=== PATIENT | male | born 1970 | race Caucasian/White ===

== ENCOUNTER 2018-06-22 05:57 | Emergency (ER) | payer BC ==
--- NOTE | 2018-06-22 06:08 | Emergency Department Record ---
History of Present Illness - General Chief complaint: Lower Extremity Pain Stated complaint: KNEE INJURY Time Seen by Provider: 06/22/18 05:58 Source: Patient Mode of Arrival: Ambulatory Limitations: No limitations - History of Present Illness Initial comments: 47 yo male presents with a right knee injury that occurred about 5pm. He was pressing against something and felt a pop in the lateral right knee. The pain has gradually increased since then. No history of prior right knee surgery or disease. MD Complaint: Joint pain, Joint swelling -: Hour(s) (13) Location: Right, Knee History of Same: Yes -: Yes Arthralgia Radiation: Distal Quality: Aching Consistency: Constant Improves with: Nothing Worsens with: Palpation, Walking, Weight bearing Associated Symptoms: Denies other symptoms - Related Data Home Medications Medication Instructions Recorded Confirmed Last Taken No Home Med [NO HOME MEDS] 06/22/18 06/22/18 Unknown Allergies Allergy/AdvReac Type Severity Reaction Status Date / Time amoxicillin AdvReac DIARRHEA Verified 06/22/18 06:04 Review of Systems Constitutional: Denies: Chills, Fever, Malaise, Weakness Eyes: Denies: Eye discharge ENT: Denies: Congestion, Throat pain Respiratory: Denies: Cough Cardiovascular: Denies: Chest pain, Palpitations, Syncope Endocrine: Denies: Fatigue Gastrointestinal: Denies: Abdominal pain, Diarrhea, Nausea, Vomiting Genitourinary: Denies: Dysuria, Frequency, Hematuria Musculoskeletal: Reports: As per HPI, Arthralgia Skin: Denies: Bruising, Change in color, Rash Neurological: Denies: Headache Psychiatric: Denies: Anxiety Hematological/Lymphatic: Denies: Easy bleeding, Easy bruising Past Medical History - SOCIAL HISTORY Smoking Status: Former smoker - RESPIRATORY Hx Respiratory Disorders: No - CARDIOVASCULAR Hx Cardio Disorders: No - NEURO Hx Neuro Disorders: No - GI Hx GI Disorders: No - Hx Genitourinary Disorders: No - ENDOCRINE Hx Endocrine Disorders: No - MUSCULOSKELETAL Hx Musculoskeletal Disorders: No - PSYCH Hx Psych Problems: No - HEMATOLOGY/ONCOLOGY Hx Hematology/Oncology Disorders: No Family Medical History Hx Dementia: Grandparents Hx Diabetes: Mother Hx HTN: Father, Mother Hx Stroke: Grandparents Physical Exam - General General Appearance: Alert, Oriented x3, Cooperative, No acute distress Limitations: No limitations - Head Head exam: Atraumatic, Normal inspection - Eye Eye exam: Normal appearance - ENT ENT exam: Normal exam Ear exam: Normal external inspection Nasal Exam: Normal inspection Mouth exam: Normal external inspection - Neck Neck exam: Normal inspection - Extremities Extremities exam: Normal inspection, Joint swelling, Tenderness. negative: Calf tenderness Image of Full Body: 1 - lateral right knee tenderness with palpation, mild effusion likely, patella is midline, no medial tenderness - Back Back exam: Reports: Full ROM - Neurological Neurological exam: Alert, Oriented X3 - Psychiatric Psychiatric exam: Normal affect, Normal mood - Skin Skin exam: Dry, Intact, Normal color, Warm Course - Reevaluation(s) Reevaluation #1: 06/22/18 06:35 The XR was reviewed Narrowed medial joint, small effusion, no fracture or dislocation He will be treated supportively with crutches and knee immobilizer He has seen Dr Kirkpatrick in the past and he will be referred to the [facility] ortho clinic Disposition Disposition: Discharge Clinical Impression: Right knee sprain Qualifiers: Encounter type: initial encounter Involved ligament of knee: unspecified ligament Qualified Code(s): S83.91XA - Sprain of unspecified site of right knee , initial encounter Disposition: Home, Self-Care Condition: (1) Good Instructions: Knee Sprain (ED) Additional Instructions: Ice and elevate the knee to minimize swelling Use the crutches for support and to take weight off the knee as it heals Forms: Patient Portal Access Time of Disposition: 06:37 Quality - Quality Measures Quality Measures: N/A - Blood Pressure Screening Does Patient Have Any of the Following: No Blood Pressure Classification: Hypertensive Reading Systolic Measurement: 134 Diastolic Measurement: 95 Screening for High Blood Pressure: < Pre-Hypertensive BP, F/U Documented > [ [id number]] Pre-Hypertensive Follow-up Interventions: Referral to alternative/primary care provider.
--- NOTE | 2018-06-23 08:29 | RADIOLOGY REPORT ---
EXAM: RIGHT KNEE HISTORY: INJURY, KNEE PAIN. TECHNIQUE: Four views of the right knee were obtained. Comparison: Right knee radiographs 11/19/16. FINDINGS: Suggestion of a moderate sized knee joint effusion. No definite fracture line visualized. No dislocation. Mild degenerative findings not significantly progressed from prior. IMPRESSION: 1. SUGGESTION OF MODERATE KNEE JOINT EFFUSION. 2. NO DEFINITE ACUTE OSSEOUS FINDINGS. 3. MILD DEGENERATIVE FINDINGS. JOB NUMBER: [id number] [facility]
== END 2018-06-22 06:52 | disposition home or self-care (01) ==
LOC: ER 05:57
DX: S83.91XA Sprain of unspecified site of right knee, initial encounter (principal); X50.0XXA Overexertion from strenuous movement or load, initial encounter
CPT/HCPCS: 99283